=== PATIENT | female | born 1970 | race Caucasian/White ===

== ENCOUNTER → 2018-10-22 08:12 | Outpatient (CLI) | payer BC | END | disposition home or self-care (01) | LOC: D.US 08:12 | PROVIDERS: ATTEND Internal Medicine Gastroenterology | DX: R10.9 Unspecified abdominal pain (principal) ==

== ENCOUNTER → 2019-01-04 07:53 | Outpatient (CLI) | payer BC | END | disposition home or self-care (01) | LOC: D.NM 07:53 | PROVIDERS: ATTEND Internal Medicine Gastroenterology | DX: R11.0 Nausea (principal); R10.9 Unspecified abdominal pain; R14.0 Abdominal distension (gaseous) ==